=== PATIENT | male | born 1965 | race Caucasian/White ===

== ENCOUNTER 2016-06-21 21:01 | Emergency (ER) | payer MEDICARE, SELFPAY ==
[~2016-06-21] VITALS: Ht 167.6 cm; Wt 130.8 kg
[2016-06-21 21:33] VITALS: BP 176/96
[2016-06-21] MEDS ORDERED: DASA20TA PO (21:42)
== END 2016-06-21 23:31 | disposition home or self-care (01) ==
LOC: ED 21:33
DX: S83.411A Sprain of medial collateral ligament of right knee, initial encounter (principal); W01.0XXA Fall on same level from slipping, tripping and stumbling without subsequent striking against object, initial encounter; Y93.89 Activity, other specified; Y92.89 Other specified places as the place of occurrence of the external cause; Y99.8 Other external cause status
CPT/HCPCS: 29505